=== PATIENT | male | born 1965 | race Caucasian/White ===

== ENCOUNTER 2017-05-15 10:39 | Emergency (ER) | payer SELFPAY ==
[2017-05-15 10:47] VITALS: RESP 16
[2017-05-15] MEDS ORDERED: NS 1,000 ML IV ONE (10:59)
--- NOTE | 2017-05-15 10:59 | EDPHY ---
H & P Stated Complaint: generalized abd pain cramping x 1 week/black stools/also uri symptoms Time Seen by Provider: 05/15/17 10:58 HPI/ROS: HPI: This is a 52-year-old male who presents with Chief Complaint: generalized abd pain cramping x 1 week/black stools/also uri symptoms Location:gi Quality: Abdominal cramping Duration: Months Signs and Symptoms: no fever, no nausea, no vomiting, no hematemesis, no blood in stool, no abdominal bloating, no diarrhea, no back pain, no urinary symptoms , no testicular/groin pain, no indigestion, no chest pain, no shortness of breath Timing: Once a week Severity: Moderate Context: Patient is generally healthy but does not follow regularly with primary care presents with 2 complaints. 1) over the past several months approximately occurring 3-4 times per month patient develops of burning epigastric pain accompanied by bilateral flank pain that is worsened with certain movements. He denies any indigestion/food intolerance/diarrhea/fever/ urinary symptoms/testicular groin pain. He has noted some dark stools. He drinks approximately 2 days per week. Drink of choice is Cervaza. Patient also uses ibuprofen almost daily. No History abdominal surgeries. Denies hematemesis. 2) 3 day history of runny nose, nasal congestion, dry cough. Denies sore throat/swollen glands/shortness of breath/chest pain. Did not receive influenza vaccine this year. Modifying Factors: None Comment: ROS: see HPI Constitutional: No fever, no chills, no weight loss Eyes: No blurred vision Respiratory: No shortness of breath, no cough Cardiovascular: No chest pain, no palpitations Gastrointestinal: No nausea, no vomiting, no diarrhea, no hematemesis, no blood in stool Genitourinary: No dysuria, no blood in urine Extremities: No myalgias, no edema Neurologic: No weakness, no numbness Skin: No rashes, no petechiae Hematologic: No bruising, no bleeding MEDICAL/SURGICAL/SOCIAL HISTORY: Medical history: Generally healthy. Does not take any regular medications. Surgical history: Denies Social history: Employed. Drinks alcohol on the weekends. Family history is positive for hypertension, diabetes. CONSTITUTIONAL: Overweight male, awake and alert, no obvious distress HEENT: Atraumatic and normocephalic, PERRL, EOMI. Tympanic membranes clear. Oropharynx clear, no exudate and moist pink mucosa. Nares patent: No rhinorrhea Airway patent. No lymphadenopathy. No meningismus. Cardiovascular: Normal S1/S2, regular rate, regular rhythm, without murmur rub or gallop. PULMONARY/CHEST: Symmetrical and nontender. Clear to auscultation bilaterally. Good air movement. No accessory muscle usage. ABDOMEN: Soft, nondistended, moderate epigastric tenderness, no rebound, no guarding, no peritoneal signs, no masses or organomegaly. No CVAT. EXTREMITIES: 2/2 pulses, strength 5/5, no deformities, no clubbing, no cyanosis or edema. NEUROLOGICAL: no focal neuro deficits. GCS 15. SKIN: Warm and dry, no erythema. no rash. Good capillary refill. 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[place]) Exam Limitations: Language barrier - Personal History Current Tetanus/Diphtheria Vaccine: Yes - Medical/Surgical History Hx Asthma: No Hx Chronic Respiratory Disease: No Hx Diabetes: No Hx Cardiac Disease: No Hx Renal Disease: No Hx Cirrhosis: No Hx Alcoholism: No Hx HIV/AIDS: No Hx Splenectomy or Spleen Trauma: No Other PMH: denies - Social History Smoking Status: Never smoked Constitutional: Initial Vital Signs Temperature (C) 37 C 05/15/17 10:42 Heart Rate 81 05/15/17 10:42 Respiratory Rate 16 05/15/17 10:42 Blood Pressure 140/100 H 05/15/17 10:42 O2 Sat (%) 95 05/15/17 10:42 O2 Delivery Mode Room Air Allergies/Adverse Reactions: No Known Allergies Allergy (Unverified 05/15/17 10:42) Home Medications: Medication Instructions Recorded Clarithromycin [Biaxin] 500 mg PO BID #14 tab 05/15/17 Esomeprazole Mag Trihydrate 40 mg PO DAILY #20 cap 05/15/17 [Nexium] Medical Decision Making - Diagnostics Imaging Results: Imaging Impressions Abdomen CT 05/15/17 10:59 Impression: 1. Moderate diverticulosis without evidence of acute diverticulitis. 2. Left inguinal hernia with large hydrocele. Findings and recommendations discussed with Kacey Hanna at 1304 hour, 2017. Chest X-Ray 05/15/17 10:59 Impression: Bronchitis with patchy left basilar opacities suspicious for pneumonia. ED Course/Re-evaluation: Chest x-ray, CT abdomen and pelvis scan, labs, urinalysis, IV fluids, oral and IV medications ordered Given 1 L normal saline, GI cocktail, Pepcid Chest x-ray my read shows bronchitic changes with early bilateral infiltrates; no history of lung disease; appropriate to treat outpatient with Biaxin. Labs reviewed: Platelet count 136 K; hematology referral outpatient Differential Diagnosis: Abdominal pain including but not limited to appendicitis, cholecystitis, gastritis and urinary tract infection. - Data Points Laboratory Results: Laboratory Results 05/15/17 11:20 05/15/17 11:20 05/15/17 05/15/17 05/15/17 11:20 11:20 11:20 WBC 5.93 10^3/uL 10^3/uL (3.80-9.50) RBC 5.07 10^6/uL 10^6/uL (4.40-6.38) Hgb 15.5 g/dL g/dL (13.7-17.5) Hct 43.5 % % (40.0-51.0) MCV 85.8 fL fL (81.5-99.8) MCH 30.6 pg pg (27.9-34.1) MCHC 35.6 g/dL g/dL (32.4-36.7) RDW 13.0 % % (11.5-15.2) Plt Count 136 10^3/uL L 10^3/uL (150-400) MPV 9.7 fL fL (8.7-11.7) Neut % (Auto) 57.3 % % (39.3-74.2) Lymph % (Auto) 25.1 % % (15.0-45.0) [place] % (Auto) 16.9 % H % (4.5-13.0) Eos % (Auto) 0.0 % L % (0.6-7.6) Baso % (Auto) 0.2 % L % (0.3-1.7) Nucleat RBC Rel Count 0.0 % % (0.0-0.2) Absolute Neuts (auto) 3.40 10^3/uL 10^3/uL (1.70-6.50) Absolute Lymphs (auto) 1.49 10^3/uL 10^3/uL (1.00-3.00) Absolute Monos (auto) 1.00 10^3/uL H 10^3/uL (0.30-0.80) Absolute Eos (auto) 0.00 10^3/uL L 10^3/uL (0.03-0.40) Absolute Basos (auto) 0.01 10^3/uL L 10^3/uL (0.02-0.10) Absolute Nucleated RBC 0.00 10^3/uL 10^3/uL (0-0.01) Immature Gran % 0.5 % % (0.0-1.1) Immature Gran # 0.03 10^3/uL 10^3/uL (0.00-0.10) PT 12.5 SEC SEC (12.0-15.0) INR 0.91 (0.83-1.16) APTT 28.3 SEC SEC (23.0-38.0) Sodium 137 mEq/L mEq/L (135-145) Potassium 4.3 mEq/L mEq/L (3.5-5.2) Chloride 100 mEq/L mEq/L (97-110) Carbon Dioxide 24 mEq/l mEq/l (22-31) Anion Gap 13 mEq/L mEq/L (8-16) BUN 15 mg/dL mg/dL (7-23) Creatinine 1.0 mg/dL mg/dL (0.7-1.3) Estimated GFR > 60 Glucose 98 mg/dL mg/dL (70-100) Calcium 8.7 mg/dL mg/dL (8.5-10.4) Total Bilirubin 0.5 mg/dL mg/dL (0.1-1.4) Conjugated Bilirubin 0.4 mg/dL mg/dL (0.0-0.5) Unconjugated Bilirubin 0.1 mg/dL mg/dL (0.0-1.1) AST 40 IU/L IU/L (17-59) ALT 58 IU/L IU/L (21-72) Alkaline Phosphatase 70 IU/L IU/L (38-126) Total Protein 7.4 g/dL g/dL (6.3-8.2) Albumin 4.3 g/dL g/dL (3.5-5.0) Lipase 111 IU/L IU/L (23-300) Medications Given: Discontinued Medications Al Hydroxide/Mg Hydroxide (Maalox Susp) 30 ml PO ONCE ONE Stop: 05/15/17 11:29 Last Admin: 05/15/17 11:39 Dose: 30 ml Clarithromycin (Biaxin) 500 mg PO ONCE ONE PRN Reason: Protocol Stop: 05/15/17 11:30 Last Admin: 05/15/17 11:55 Dose: 500 mg Famotidine (Pepcid) 20 mg PO EDNOW ONE Stop: 05/15/17 11:29 Last Admin: 05/15/17 11:39 Dose: 20 mg Hyoscyamine Sulfate (Levsin, Hyomax-Sl) 0.25 mg PO ONCE ONE Stop: 05/15/17 11:29 Last Admin: 05/15/17 11:39 Dose: 0.25 mg Sodium Chloride (Ns) 1,000 mls @ 0 mls/hr IV EDNOW ONE; Wide Open PRN Reason: Protocol Stop: 05/15/17 11:00 Last Admin: 05/15/17 11:20 Dose: 1,000 mls Lidocaine (Lidocaine 2% Viscous) 15 ml PO ONCE ONE Stop: 05/15/17 11:29 Last Admin: 05/15/17 11:39 Dose: 15 ml Departure - Departure Disposition: Home, Routine, Self-Care Clinical Impression: Diverticulosis of colon (without mention of hemorrhage), Left inguinal hernia, Thrombocytopenia Community acquired pneumonia Qualifiers: Laterality: unspecified laterality Qualified Code(s): J18.9 - Pneumonia, unspecified organism Condition: Good Instructions: Community Acquired Pneumonia (ED) Additional Instructions: Stop drinking alcohol and avoid all NSAIDs including ibuprofen, Motrin, Advil. Deje de vera alcohol y evite los antiinflamatorios no esteroideos (abreviado REJI) (NSAIDs por lorenzo siglas en [place]) incluyendo ibuprofeno, Motrin, Advil. Start taking Nexium daily. Inicie el uso de Nexium hoy, tomelo diario. Chest x-ray shows early pneumonia; take Biaxin as directed until complete. Damon radiografia del pecho ensea neumonia temprana; tome Biaxin celena fue indicado hasta que lo termine. Follow-up with Hematology in 5-7 days as your platelets are low. Platelets help your blood clot. I suspect this may be related to your alcohol use. Fije uzair de seguimiento con Hematologia dentro de 5-7 loyola por la olya que lorenzo plaquetas estan bajas. Las plaquetas ayudan a que coagule la saba. Sospecho que puede ser causa del uso de alcohol. Establish care with primary care provider at [facility] within 1-2 weeks. Asegurese de stablescer daniel uzair con damon medico de cabecera en la [facility] para dentro de 1 a 2 semanas. Referrals: [facility],. [Clinic] - As per Instructions Rodolfo Turner MD [Medical Doctor] - As per Instructions Prescriptions: Clarithromycin [Biaxin] 500 mg PO BID #14 tab Esomeprazole Mag Trihydrate [Nexium] 40 mg PO DAILY #20 cap. Print Language: [place]
[2017-05-15 11:28] LABS: PLATELET COUNT 136 10^3/uL (150-400)
[2017-05-15] MEDS ORDERED: MAG HYDROX/AL HYDROX/SIMETH 30 ML UDCUP PO ONE (11:28)
[2017-05-15] MEDS ORDERED: FAMOTIDINE 20 MG TAB PO ONE (11:28)
[2017-05-15] MEDS ORDERED: LIDOCAINE 2% VISCOUS 15 ML UDCUP PO ONE (11:28)
[2017-05-15] MEDS ORDERED: HYOSCYAMINE SULFATE 0.125 MG TAB PO ONE (11:28)
[2017-05-15] MEDS ORDERED: CLARITHROMYCIN 500 MG TAB PO ONE (11:29)
[2017-05-15 11:45] LABS: INR 0.91 (0.83-1.16); PROTIME(PATIENT) 12.5 SEC (12.0-15.0)
[2017-05-15] MEDS ORDERED: IOPAMIDOL (ISOVUE-300) 100 ML BTL ONE (12:27)
[2017-05-15 14:00] VITALS: BP 117/74; PULSE 73; TEMP 97.9; O2SAT 93
== END 2017-05-15 14:00 | disposition home or self-care (01) ==
DX: K57.32 Diverticulitis of large intestine without perforation or abscess without bleeding (principal); K40.90 Unilateral inguinal hernia, without obstruction or gangrene, not specified as recurrent; D69.6 Thrombocytopenia, unspecified; J18.9 Pneumonia, unspecified organism; E86.9 Volume depletion, unspecified
CPT/HCPCS: Q9967